=== PATIENT | male | born 1985 | race Caucasian/White ===

== ENCOUNTER 2022-10-18 03:45 | Emergency (ER) | payer OTHER ==
[~2022-10-18] VITALS: Ht 177.8 cm; Wt 113.4 kg
[2022-10-18 04:47] VITALS: BP 145/83
[2022-10-18] MEDS ORDERED: CIPR10DR LEFT EAR (04:52)
== END 2022-10-18 05:11 | disposition home or self-care (01) ==
LOC: ER 03:47
DX: H60.92 Unspecified otitis externa, left ear (principal); Z79.899 Other long term (current) drug therapy